=== PATIENT | male | born 1960 | race Caucasian/White ===

== ENCOUNTER 2016-08-31 15:50 | Inpatient (IN) | payer OTHER ==
[2016-08-31 17:00] LABS: Basophils % (A) 1 %; CH 30.9; Eosinophils % (A) 0 %; HCT 38.6 % (39.0-53.0); HGB 13.7 gm/dL (13.0-17.5); Luc # (Auto) 0.05; Luc % (Auto) 2; Lymphocytes # (A) 0.9 k/uL (1.0-4.8); Lymphocytes % (A) 31 %; MCH 30.6 pg (25.0-35.0); MCHC 35.5 g/dL (31.0-37.0); MCV 86.1 fL (80.0-100.0); Monocytes # (A) 0.2 k/uL (0-1.0); Monocytes % (A) 7 %; Neutrophils # (A) 1.7 k/uL (1.3-7.7); Neutrophils % (A) 58 %; RBC 4.49 m/uL (4.30-5.90); RDW 12.6 % (11.5-15.5); WBC 2.9 k/uL (3.8-10.6); WBC (Perox) 2.87
--- NOTE | 2016-08-31 17:08 | ED ---
General Adult HPI - General Chief complaint: Psychiatric Symptoms Stated complaint: depression Time Seen by Provider: 08/31/16 16:00 Source: patient, RN notes reviewed Mode of arrival: ambulatory Limitations: no limitations - History of Present Illness Initial comments: This is a 56-year-old male who presents to the emergency department stating she' s been more and more depressed. Patient states he was in alcohol 35 years quit 6 months ago. Patient states just prior to quitting he had been drinking and got extremely upset took one of his dogs out to the shed and shot it and killed it. He believes this is what set off his of 11 years and she eventually left him about 6 months ago. Patient states since then he has been noticing that he is having difficulty concentrating and doing his job at work. 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 Patient states he spent the last week at home just laying on the couch not doing anything. Patient denies any suicidal homicidal ideations though he states the thought of being is somewhat comforting. Patient denies any physical complaints today. Patient denies headache patient denies numbness weakness. Patient denies any chest pain difficulty breathing shortest breath per patient denies any recent fever chills or cough. Patient denies abdominal pain patient denies nausea vomiting or diarrhea. - Related Data Home Medications Medication Instructions Recorded Confirmed FLUoxetine HCL [PROzac] 40 mg PO DAILY 08/31/16 08/31/16 Levothyroxine Sodium [Synthroid] 75 mcg PO DAILY 08/31/16 08/31/16 Losartan Potassium [Cozaar] 100 mg PO DAILY 08/31/16 08/31/16 amLODIPine [Norvasc] 10 mg PO DAILY 08/31/16 08/31/16 Allergies Allergy/AdvReac Type Severity Reaction Status Date / Time No Known Allergies Allergy Verified 08/31/16 16:51 Review of Systems ROS Statement: Those systems with pertinent positive or pertinent negative responses have been documented in the HPI. ROS Other: All systems not noted in ROS Statement are negative. Past Medical History Past Medical History: Hypertension, Thyroid Disorder History of Any Multi-Drug Resistant Organisms: None Reported Past Surgical History: No Surgical Hx Reported Past Psychological History: Depression Smoking Status: Never smoker Past Alcohol Use History: None Reported Past Drug Use History: None Reported General Exam - General Exam Comments Initial Comments: GENERAL: Patient is well-developed and well-nourished. Patient is nontoxic and well- hydrated and is in no acute distress. ENT: Neck is soft and supple. No significant lymphadenopathy is noted. Oropharynx is clear. Moist mucous membranes. Neck has full range of motion without eliciting any pain. EYES: The sclera were anicteric and conjunctiva were pink and moist. Extraocular movements were intact and pupils were equal round and reactive to light. Eyelids were unremarkable. PULMONARY: Unlabored respirations. Good breath sounds bilaterally. No audible rales rhonchi or wheezing was noted. CARDIOVASCULAR: There is a regular rate and rhythm without any murmurs gallops or rubs. ABDOMEN: Soft and nontender with normal bowel sounds. No palpable organomegaly was noted. There is no palpable pulsatile mass. SKIN: Skin is clear with no lesions or rashes and otherwise unremarkable. NEUROLOGIC: Patient is alert and oriented x3. Cranial nerves II through XII are grossly intact. Motor and sensory are also intact. Normal speech, volume and content. Symmetrical smile. MUSCULOSKELETAL: Normal extremities with adequate strength and full range of motion. No lower extremity swelling or edema. No calf tenderness. LYMPHATICS: No significant lymphadenopathy is noted PSYCHIATRIC: Patient has a flat affect patient does seem significantly depressed he does not seem to know where to go or what to do as far as getting back to work because he is unable to get off his couch. Patient states he is in contact with his but only sparingly and he is not sure exactly why she is not back in the picture since he is now stopped drinking for 6 months. Limitations: no limitations Course Vital Signs 08/31/16 08/31/16 15:59 19:04 Temperature 98.3 F Pulse Rate 79 57 L Respiratory 20 16 Rate Blood Pressure 128/83 127/88 O2 Sat by Pulse 97 99 Oximetry Medical Decision Making - Lab Data Result diagrams: 08/31/16 16:45 08/31/16 16:45 Lab Results 08/31/16 08/31/16 08/31/16 Range/Units 16:45 16:45 17:00 WBC 2.9 L (3.8-10.6) k/uL RBC 4.49 (4.30-5.90) m/uL Hgb 13.7 (13.0-17.5) gm/dL Hct 38.6 L (39.0-53.0) % MCV 86.1 (80.0-100.0) fL MCH 30.6 (25.0-35.0) pg MCHC 35.5 (31.0-37.0) g/dL RDW 12.6 (11.5-15.5) % Plt Count 168 (150-450) k/uL Neutrophils % 58 % Lymphocytes % 31 % Monocytes % 7 % Eosinophils % 0 % Basophils % 1 % Neutrophils # 1.7 (1.3-7.7) k/uL Lymphocytes # 0.9 L (1.0-4.8) k/uL Monocytes # 0.2 (0-1.0) k/uL Eosinophils # 0.0 (0-0.7) k/uL Basophils # 0.0 (0-0.2) k/uL Sodium 142 (137-145) mmol/L Potassium 3.7 (3.5-5.1) mmol/L Chloride 104 (98-107) mmol/L Carbon Dioxide 29 (22-30) mmol/L Anion Gap 9 mmol/L BUN 11 (9-20) mg/dL Creatinine 0.87 (0.66-1.25) mg/dL Est GFR (MDRD) Af Amer >60 (>60 ml/min/1.73 sqM) Est GFR (MDRD) Non-Af >60 (>60 ml/min/1.73 sqM) Glucose 85 (74-99) mg/dL Calcium 9.3 (8.4-10.2) mg/dL Magnesium 2.4 H (1.6-2.3) mg/dL Total Bilirubin 0.8 (0.2-1.3) mg/dL AST 30 (17-59) U/L ALT 43 (21-72) U/L Alkaline Phosphatase 48 (38-126) U/L Total Protein 7.0 (6.3-8.2) g/dL Albumin 4.2 (3.5-5.0) g/dL Urine Opiates Screen Not Detected (NotDetected) Ur Oxycodone Screen Not Detected (NotDetected) Urine Methadone Screen Not Detected (NotDetected) Ur Propoxyphene Screen Not Detected (NotDetected) Ur Barbiturates Screen Not Detected (NotDetected) U Tricyclic Antidepress Not Detected (NotDetected) Ur Phencyclidine Scrn Not Detected (NotDetected) Ur Amphetamines Screen Not Detected (NotDetected) U Methamphetamines Scrn Not Detected (NotDetected) U Benzodiazepines Scrn Detected H (NotDetected) Urine Cocaine Screen Not Detected (NotDetected) U Marijuana (THC) Screen Not Detected (NotDetected) Disposition Clinical Impression: Depression Disposition: ADMITTED IP TO THIS HOSP Time of Disposition: 21:12
[2016-08-31 17:13] LABS: ALT 43 U/L (21-72); AST 30 U/L (17-59); Alkaline Phosphatase 48 U/L (38-126); Anion Gap 9 mmol/L; Blood Urea Nitrogen 11 mg/dL (9-20); Calcium 9.3 mg/dL (8.4-10.2); Carbon Dioxide 29 mmol/L (22-30); Chloride 104 mmol/L (98-107); Glucose 85 mg/dL (74-99); Magnesium 2.4 mg/dL (1.6-2.3); Non-African American GFR(MDRD) >60 (>60 ml/min/1.73 sqM); Potassium 3.7 mmol/L (3.5-5.1); Sodium 142 mmol/L (137-145); Total Bilirubin 0.8 mg/dL (0.2-1.3)
--- NOTE | 2016-08-31 19:35 | CT ---
EXAMINATION TYPE: CT brain wo con DATE OF EXAM: 08/31/2016 7:20 PM COMPARISON: NONE HISTORY: Depression. CT DLP: 1121.00 mGycm Automated exposure control for dose reduction was used. FINDINGS: Ventricles have normal size. There is no mass effect nor midline shift. There is no sign of intracran ial hemorrhage. The calvarium is intact. IMPRESSION: Negative unenhanced head CT scan.
[2016-09-01] MEDS ORDERED: MAGNESIUM HYDROXIDE 2,400 MG/10 ML CUP PO PRN (04:26)
[2016-09-01] MEDS ORDERED: ZIPRASIDONE 20 MG VIAL IM PRN (04:26)
[2016-09-01] MEDS ORDERED: MAG HYDROX/AL HYDROX/SIMETH 30 ML CUP PO PRN (04:26)
[2016-09-01] MEDS ORDERED: ACETAMINOPHEN TAB 325 MG TAB PO PRN (04:26)
[2016-09-01] MEDS ORDERED: LORazepam 1 MG TAB PO PRN (04:26)
[2016-09-01] MEDS ORDERED: FLUoxetine HCL 20 MG CAP PO SCH (09:00)
[2016-09-01] MEDS: LEVOTHYROXINE 75 MCG TAB PO SCH (09:44)
[2016-09-01] MEDS: LOSARTAN 50 MG TAB PO SCH (09:44)
[2016-09-01] MEDS: amLODIPine 10 MG TAB PO SCH (09:44)
[2016-09-01] MEDS: NICOTINE 14MG/24HR PATCH TRANSDERM SCH (09:45)
--- NOTE | 2016-09-01 16:47 | P.HP ---
Psychiatric H&P - . H&P Date: 09/01/16 History & Physical: Allergies Allergy/AdvReac Type Severity Reaction Status Date / Time No Known Allergies Allergy Verified 09/01/16 07:25 Vital Signs Temp 98.0 F 09/01/16 06:59 Pulse 95 09/01/16 09:47 Resp 18 09/01/16 09:47 BP 125/80 09/01/16 09:47 Pulse Ox 97 08/31/16 21:43 Laboratory Last Values WBC 2.9 k/uL (3.8-10.6) L 08/31/16 16:45 RBC 4.49 m/uL (4.30-5.90) 08/31/16 16:45 Hgb 13.7 gm/dL (13.0-17.5) 08/31/16 16:45 Hct 38.6 % (39.0-53.0) L 08/31/16 16:45 MCV 86.1 fL (80.0-100.0) 08/31/16 16:45 MCH 30.6 pg (25.0-35.0) 08/31/16 16:45 MCHC 35.5 g/dL (31.0-37.0) 08/31/16 16:45 RDW 12.6 % (11.5-15.5) 08/31/16 16:45 Plt Count 168 k/uL (150-450) 08/31/16 16:45 Neutrophils % 58 % 08/31/16 16:45 Lymphocytes % 31 % 08/31/16 16:45 Monocytes % 7 % 08/31/16 16:45 Eosinophils % 0 % 08/31/16 16:45 Basophils % 1 % 08/31/16 16:45 Neutrophils # 1.7 k/uL (1.3-7.7) 08/31/16 16:45 Lymphocytes # 0.9 k/uL (1.0-4.8) L 08/31/16 16:45 Monocytes # 0.2 k/uL (0-1.0) 08/31/16 16:45 Eosinophils # 0.0 k/uL (0-0.7) 08/31/16 16:45 Basophils # 0.0 k/uL (0-0.2) 08/31/16 16:45 Sodium 142 mmol/L (137-145) 08/31/16 16:45 Potassium 3.7 mmol/L (3.5-5.1) 08/31/16 16:45 Chloride 104 mmol/L (98-107) 08/31/16 16:45 Carbon Dioxide 29 mmol/L (22-30) 08/31/16 16:45 Anion Gap 9 mmol/L 08/31/16 16:45 BUN 11 mg/dL (9-20) 08/31/16 16:45 Creatinine 0.87 mg/dL (0.66-1.25) 08/31/16 16:45 Est GFR (MDRD) Af Amer >60 (>60 ml/min/1.73 sqM) 08/31/16 16:45 Est GFR (MDRD) Non-Af >60 (>60 ml/min/1.73 sqM) 08/31/16 16:45 Glucose 85 mg/dL (74-99) 08/31/16 16:45 Calcium 9.3 mg/dL (8.4-10.2) 08/31/16 16:45 Magnesium 2.4 mg/dL (1.6-2.3) H 08/31/16 16:45 Total Bilirubin 0.8 mg/dL (0.2-1.3) 08/31/16 16:45 AST 30 U/L (17-59) 08/31/16 16:45 ALT 43 U/L (21-72) 08/31/16 16:45 Alkaline Phosphatase 48 U/L (38-126) 08/31/16 16:45 Total Protein 7.0 g/dL (6.3-8.2) 08/31/16 16:45 Albumin 4.2 g/dL (3.5-5.0) 08/31/16 16:45 Urine Opiates Screen Not Detected (NotDetected) 08/31/16 17:00 Ur Oxycodone Screen Not Detected (NotDetected) 08/31/16 17:00 Urine Methadone Screen Not Detected (NotDetected) 08/31/16 17:00 Ur Propoxyphene Screen Not Detected (NotDetected) 08/31/16 17:00 Ur Barbiturates Screen Not Detected (NotDetected) 08/31/16 17:00 U Tricyclic Antidepress Not Detected (NotDetected) 08/31/16 17:00 Ur Phencyclidine Scrn Not Detected (NotDetected) 08/31/16 17:00 Ur Amphetamines Screen Not Detected (NotDetected) 08/31/16 17:00 U Methamphetamines Scrn Not Detected (NotDetected) 08/31/16 17:00 U Benzodiazepines Scrn Detected (NotDetected) H 08/31/16 17:00 Urine Cocaine Screen Not Detected (NotDetected) 08/31/16 17:00 U Marijuana (THC) Screen Not Detected (NotDetected) 08/31/16 17:00 09/01/16 16:39 IDENTIFYING DATA: 56-year-old male patient HPI: Patient admitted to the inpatient psychiatric unit at [facility] on a voluntary basis. Patient describes that he had depression in the last 2 weeks she's been more anxious and afraid to leave the house. He states the last 2 years as been a lot of not great things with his drinking so his and he are not together and when they went her separate ways he was left with dealing with things such as the animals. Says he has not been going to work recently. He denies actual thoughts of suicide recently but the last time he felt this bad was when he decided he had to stop drinking. He admits to being a worrier. He describes an incident a year ago where they were accumulating dogs, they went from 5 to 12 dogs and he had the idea at that time to stop taking Prozac. He states he had two really high strung dogs that were barking all the time and he shot and killed one of the dogs and things changed for his him from that time on. PAST PSYCHIATRIC HISTORY: He has never had any psychiatric admissions. He denies any history of suicide times. He does not see a current counselor. He' s been on 40 mg of Prozac for years. That always seemed to do well for him and he realizes that it does help when he goes without it. PMH: Denies ALLERGIES: No Known ALLERGIES MEDICATIONS: Tylenol when necessary, Maalox when necessary, Norvasc, Prozac, Synthroid, Ativan when necessary, Cozaar, milk of magnesia when necessary, Habitrol, Geodon when necessary CHEMICAL DEPENDENCY HISTORY: Says he has been sober for 6-1/2 months now. He makes reference to doing AA. Says his whole adult life he was a daily drinker, he did try doing some counseling in [place] and going to AA. Has never been to rehab. FAMILY PSYCHIATRIC HISTORY: Not that he is aware of FAMILY CHEMICAL DEPENDENCY HISTORY: Not known SOCIAL HISTORY: Reports that he currently has 7 dogs and 5 cats. He has been 3-1/2 years. They were together 11 years. He relates that she moved out last fall. He does not currently have any guns. He states his last understanding is that their relationship is done. He is currently living on his own. He does not have any children. He works as a project architect doing acoustic tests. MENTAL STATUS EXAM: He is alert and cooperative. Speech is fluent, not rapid or pressured. His thought processes are organized. His mood is described as "still trying to take everything in." "Better than I thought." He denies any current thoughts of harm to self or others. He denies any auditory or visual hallucinations. He does not make any ant delusional statements. Insight is adequate, judgment shows evidence of recent impairment. Cognitively appears to be grossly intact. I do not note any significant disorientation or memory disturbance. STRENGTHS/WEAKNESSES: Strengths-some support system; weaknesses-coping skills INTELLECTUAL FUNCTIONING: Average IMPRESSIONS: Major depressive disorder, recurrent; generalized anxiety disorder ; history of alcohol use disorder PLAN: Patient is admitted to the inpatient psychiatric unit [facility] on a voluntary basis. He will be placed on SP 15 minute precautions. Baseline laboratory workup will be done the patient and medical consultation will be ordered. We'll titrate Prozac to 60 motives daily to help with depression and anxiety. We will look into family supports. We'll continue to cover this patient for Dr. Kapoor through the weekend, Dr. Kapoor will initiate his care on Saturday. Estimated length of stay is 3-5 days. Prognosis is guarded.
--- NOTE | 2016-09-01 18:00 | P.CONS ---
History of Present Illness - Reason for Consult Consult date: 09/01/16 medical H N P - History of Present Illness 56 yr old with h/o of HTn, hypothyroidism is admitted to the hospital with complaints of hopelessness and some remote suicidal thoughts Pt has had long history of alcohol abuse, which has caused stress on his relation ship with his , has been sober for over 6 months at this time States he is frustrated. Apparently has slept the last few days, appetite has decreased Denies recent illnesses No headaches, blurry vision , n/v, chest pain, ABEBA, abdominal pain, focal deficits, urinary urgency or frequency reported. Review of Systems All systems: negative (noted in HPI) Past Medical History Past Medical History: Hypertension, Thyroid Disorder History of Any Multi-Drug Resistant Organisms: None Reported Past Surgical History: No Surgical Hx Reported Past Psychological History: Depression Smoking Status: Never smoker Past Alcohol Use History: None Reported Past Drug Use History: None Reported Medications and Allergies Home Medications Medication Instructions Recorded Confirmed Type FLUoxetine HCL [PROzac] 40 mg PO DAILY 08/31/16 09/01/16 History Levothyroxine Sodium [Synthroid] 75 mcg PO DAILY 08/31/16 09/01/16 History Losartan Potassium [Cozaar] 100 mg PO DAILY 08/31/16 09/01/16 History amLODIPine [Norvasc] 10 mg PO DAILY 08/31/16 09/01/16 History Allergies Allergy/AdvReac Type Severity Reaction Status Date / Time No Known Allergies Allergy Verified 09/01/16 07:25 Physical Exam Vitals: Vital Signs Temp Pulse Pulse Resp BP BP Pulse Ox 09/01/16 09:47 95 18 125/80 09/01/16 06:59 98.0 F 84 16 105/70 09/01/16 06:32 98.5 F 74 16 130/74 08/31/16 21:43 97 F L 87 18 129/71 97 - Constitutional General appearance: no acute distress - EENT Eyes: PERRLA - Neck Neck: normal ROM, no rigidity - Respiratory Respiratory: bilateral: CTA, negative: dullness, rales, rhonchi - Cardiovascular Rhythm: regular Heart sounds: normal: S1, S2 - Gastrointestinal General gastrointestinal: normal bowel sounds, no organomegaly, soft - Integumentary Integumentary: no jaundiced, normal - Neurologic Neurologic: CNII-XII intact - Musculoskeletal Musculoskeletal: gait normal, strength equal bilaterally - Psychiatric Psychiatric: A&O x's 3 (flat affect. ) Results CBC & Chem 7: 08/31/16 16:45 08/31/16 16:45 Assessment and Plan Plan: 1. Major depression 2. h/o of alcohol abuse 3. hypothyroidism 4. HTN Plan Examination is wnl. No further testing is necessary. pt does seem to have significant social issues MEds were reviewed Thank you for the consultation will follow the pt with you intermittently.
[2016-09-02 08:38] LABS: Basophils % (A) 0 %; CH 30.5; CHCM 34.5; Eosinophils % (A) 0 %; HCT 40.7 % (39.0-53.0); HDW 2.65; HGB 14.1 gm/dL (13.0-17.5); Luc # (Auto) 0.09; Luc % (Auto) 3; Lymphocytes # (A) 1.1 k/uL (1.0-4.8); Lymphocytes % (A) 34 %; MCH 30.8 pg (25.0-35.0); MCHC 34.6 g/dL (31.0-37.0); MCV 88.8 fL (80.0-100.0); Mean Platelet Volume 7.3; Monocytes # (A) 0.2 k/uL (0-1.0); Monocytes % (A) 6 %; Neutrophils # (A) 1.8 k/uL (1.3-7.7); Neutrophils % (A) 56 %; RBC 4.58 m/uL (4.30-5.90); RDW 12.7 % (11.5-15.5); WBC 3.2 k/uL (3.8-10.6)
[2016-09-02 08:51] LABS: ALT 37 U/L (21-72); AST 26 U/L (17-59); Alkaline Phosphatase 38 U/L (38-126); Anion Gap 9 mmol/L; Blood Urea Nitrogen 12 mg/dL (9-20); Calcium 9.3 mg/dL (8.4-10.2); Carbon Dioxide 28 mmol/L (22-30); Chloride 106 mmol/L (98-107); Glucose 99 mg/dL (74-99); Non-African American GFR(MDRD) >60 (>60 ml/min/1.73 sqM); Potassium 4.3 mmol/L (3.5-5.1); Sodium 143 mmol/L (137-145)
[2016-09-02] MEDS: LOSARTAN 50 MG TAB PO SCH (09:30)
[2016-09-02] MEDS: LEVOTHYROXINE 75 MCG TAB PO SCH (09:30)
[2016-09-02] MEDS: FLUoxetine HCL 20 MG CAP PO SCH (09:30)
[2016-09-02] MEDS: NICOTINE 14MG/24HR PATCH TRANSDERM SCH (09:31)
[2016-09-02] MEDS: amLODIPine 10 MG TAB PO SCH (09:31)
--- NOTE | 2016-09-02 16:33 | P.PN ---
Progress Note - Text Interval history: Patient seen again in cross coverage today for Dr. Kapoor. He reports that he slept better last night perhaps about 6 hours. He does relate that he is eating well. He seems to be tolerating the increased dose of Prozac well. He is attending groups. MEntal status exam: He is alert and cooperative with the interview. His speech is fluent, not rapid or pressured. Thought processes organized. His affect overall is restricted. His mood he described as all right. He does not verbalize any thoughts of harm to self or others. No evidence of psychosis or agitation. Plan: Patient will be maintained on current dose of Prozac which has been titrated. Dr. Kapoor will be initiating care this patient starting tomorrow. Continue to monitor his mood. Look into potential family meeting with his parents.
[2016-09-03] MEDS: amLODIPine 10 MG TAB PO SCH (08:31)
[2016-09-03] MEDS: FLUoxetine HCL 20 MG CAP PO SCH (08:31)
[2016-09-03] MEDS: LEVOTHYROXINE 75 MCG TAB PO SCH (08:32)
[2016-09-03] MEDS: LOSARTAN 50 MG TAB PO SCH (08:32)
--- NOTE | 2016-09-03 15:21 | P.PN ---
Progress Note - Text SUBJECTIVE: I reviewed the medical record, interviewed Mr. Soares and discuss his treatment and treatment plan during team meeting. He has history of an alcohol use disorder and depression. He stated that he stopped using alcohol without professional intervention about 6 months ago concerned about the effect of his alcohol use on his marriage. However, he and his have since and he believes they will not reconcile. His depression has affected his performance at work where he last went to work on Saturday prior to admission. We talked about the issues regarding his marriage and the relationship between his depression, marital difficulties, separation and possible divorce. He completed the Cottrell Depression Inventory. His total score was 32 consistent with severe symptoms of depression. He rated the following items as severe: Tiredness or fatigue, loss of energy and loss of interest in sex. He rated the following items as moderate: Past failure, guilty feelings, self dislike, indecisiveness, changes in sleeping pattern (I sleep a lot more than usual), and concentration difficulties. He has been prescribed fluoxetine by his primary care provider for at least 10 years. OBJECTIVE: He presented as a casually groomed 56-year-old male with several days growth of cm. He made eye contact and appeared to attend to the interview. He had no distinguishing features or prominent physical abnormalities. He had a sad facial expression. He was alert and oriented to person, place and time. He showed psychomotor retardation but no abnormal involuntary movements. He had a slow but steady gait. His speech was spontaneous with normal rate, rhythm and volume. He had no articulation difficulties. His affect was depressed and not reactive. He denied suicidal ideation or wishes. He denied homicidal ideation. He expressed depressive cognitions such as hopelessness, helplessness and worthlessness. He did not express obsessions, phobias, ideas reference, paranoid ideation or delusional thinking. His thinking was abstract and his associations were coherent and logical. ASSESSMENT: He has remains depressed but denies suicidal ideation, intent or plan. There is no evidence of psychosis. He denied a history suggestive of a near hypomania. PLAN: Continue inpatient hospitalization due to the severity of depression. Cross titrate fluoxetine to Effexor XR. Social work range outpatient individual therapy and psychiatric care. Encourage participation in therapeutic groups and activities. Evaluate clinical status response to treatment on a daily basis.
[2016-09-04] MEDS: VENLAFAXINE HCL ER 75 MG CAP PO SCH (09:22)
[2016-09-04] MEDS: LEVOTHYROXINE 75 MCG TAB PO SCH (09:22)
[2016-09-04] MEDS: FLUoxetine HCL 20 MG CAP PO SCH (09:23)
[2016-09-04] MEDS: amLODIPine 10 MG TAB PO SCH (09:53)
[2016-09-04] MEDS: LOSARTAN 50 MG TAB PO SCH (09:54)
--- NOTE | 2016-09-04 13:24 | P.PN ---
Progress Note - Text SUBJECTIVE: I reviewed the medical record, interviewed Mr. Soares and discuss his treatment and treatment plan during team meeting. He is "feeling better" today. He denied thoughts of or suicide. He talked about his struggles with alcohol and his support for his recovery to Alcoholics Anonymous. He feels constipated that he may be able to remain sober with participation in Alcoholics Anonymous. 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 The burden has increased since his he and his and a burden for the caring coffee 7 dogs and 5 cats were entirely his responsibility. OBJECTIVE: He presented as a casually groomed 56-year-old male with several days growth of cm. He made eye contact and appeared to attend to the interview. He had no distinguishing features or prominent physical abnormalities. He had a blunted but bright facial expression. He was alert and oriented to person, place and time. He showed slight psychomotor retardation but no abnormal involuntary movements. He had a slow but steady gait. His speech was spontaneous with normal rate, rhythm and volume. He had no articulation difficulties. His affect was depressed and not reactive. He denied suicidal ideation or wishes. He denied homicidal ideation. He expressed depressive cognitions such as hopelessness, helplessness and worthlessness. He did not express obsessions, phobias, ideas reference, paranoid ideation or delusional thinking. His thinking was abstract and his associations were coherent and logical. ASSESSMENT: He appears less depressed. Overall he appears moderately mentally health and moderately improved from admission. PLAN: Continue inpatient hospitalization due to the severity of depression. Cross titrate fluoxetine to Effexor XR (current doses: Prozac 40 mg daily and Effexor XR 75 mg daily). Social work range outpatient individual therapy and psychiatric care. Encourage participation in therapeutic groups and activities. Evaluate clinical status response to treatment on a daily basis
[2016-09-05 06:10] VITALS: TEMP 98.1
[2016-09-05] MEDS: amLODIPine 10 MG TAB PO SCH (08:45)
[2016-09-05] MEDS: LOSARTAN 50 MG TAB PO SCH (08:45)
[2016-09-05] MEDS: VENLAFAXINE HCL ER 75 MG CAP PO SCH (08:46)
[2016-09-05] MEDS: FLUoxetine HCL 20 MG CAP PO SCH (08:46)
[2016-09-05] MEDS: LEVOTHYROXINE 75 MCG TAB PO SCH (08:46)
[2016-09-05 08:47] VITALS: BP 92/66; PULSE 107; RESP 18
--- NOTE | 2016-09-05 09:41 | P.PN ---
Progress Note - Text SUBJECTIVE: I reviewed the medical record, interviewed Mr. Soares and discuss his treatment and treatment plan during team meeting. He denied feeling depressed or having thoughts of or suicide. He is anxious to leave and resume his life. He is unable to explain how became so distraught to the point where he is unable to work. He wishes to resume outpatient treatment through the [facility] outpatient clinic. OBJECTIVE: He presented as a casually groomed 56-year-old male with several days growth of cm. He made eye contact and appeared to attend to the interview. He had no distinguishing features or prominent physical abnormalities. He had a bright facial expression. He was alert and oriented to person, place and time. He showed slight psychomotor retardation but no abnormal involuntary movements. He had a slow but steady gait. His speech was spontaneous with normal rate, rhythm and volume. He had no articulation difficulties. His affect was blunted but bright. He denied suicidal ideation or wishes. He denied homicidal ideation. He denied feeling hopelessness , helplessness and worthlessness. He did not express obsessions, phobias, ideas reference, paranoid ideation or delusional thinking. His thinking was abstract and his associations were coherent and logical. ASSESSMENT: Overall he appears minimally mentally health and not improved from admission. PLAN: Discharge home with follow-up through [facility] outpatient clinic. Complete the cross titration of fluoxetine to Effexor XR as an outpatient. Social work range outpatient individual therapy and psychiatric care.
--- NOTE | 2016-09-05 09:54 | P.DS ---
Providers Date of admission: 08/31/16 21:37 Attending physician: Abimael Kapoor MD Consults: 09/01/16 16:09 Consult Physician Routine Consulting Provider: Toño Leavitt Consult Reason/Comments: H&P Do you want consulting provider notified?: Already Contacted 09/04/16 10:07 Consult Physician Routine Consulting Provider: Toño Leavitt Consult Reason/Comments: low blood pressure and b/p medications Do you want consulting provider notified?: Yes Primary care physician: Dasha Ritchie - Jeremy Diagnosis(es) (1) Major depressive disorder in partial remission Current Visit: Yes Status: Chronic Priority: Medium (2) Alcohol use disorder, severe, in early remission Current Visit: Yes Status: Chronic Priority: Medium Hospital Course: Mr. Soares is a 56-year-old male who presented to the psychiatric unit voluntarily with complaints of depression and suicidal ideation. He has no history of an alcohol use disorder. He stopped using alcohol without professional intervention about 6 months ago concerned about the effectiveness alcohol and his marriage. However, he and his has since and he believes they will not reconcile. The depression worsened after the separation. His depression is affecting his performance at work. He attends Alcoholics Anonymous 3 days a week and has a home group. Please see Dr. Soriano's admission history dated 09/01/2016. We admitted him to the psychiatric unit under the care of this proposal manager writer. Provided a biopsychosocial assessment. The jury consultant belly packer completed the initial physical exam and medical history. The belly packer diagnosed history of alcohol abuse, hypothyroidism and hypertension. We continued the following outpatient medications: Synthroid 75 mg daily, Cozaar 100 mg daily and Norvasc 10 mg daily. We placed him onsuicide precautions with 15 minute checks. He participated in therapeutic groups and activities. He posed no management problem and had no episodes of behavioral dyscontrol. He did not demonstrate suicidal or para-suicidal behaviors. His primary care provider has been prescribing Prozac for the treatment of depression and anxiety for over 10 years. We discussed treatment options and he consented to a trial of Effexor XR. We cross titrated Effexor and Prozac. At the time of discharge we prescribed Effexor XR 150 mg daily and Prozac 20 mg daily. The discharge instructions included continuing the Prozac 20 mg daily for 2 days and then discontinue. At the time of discharge he denied feeling depressed or having thoughts of or suicide. He denied feeling hopeless, helpless or worthless. He has appointments scheduled for continued mental health treatment through the [facility] outpatient clinic. Patient Condition at Discharge: Stable Plan - Discharge Summary New Discharge Prescriptions: FLUoxetine HCL [PROzac] 20 mg PO DAILY #2 cap Venlafaxine HCl ER [Effexor Xr] 150 mg PO DAILY 30 Days Discharge Medication List Levothyroxine Sodium [Synthroid] 75 mcg PO DAILY 08/31/16 [History] Losartan Potassium [Cozaar] 100 mg PO DAILY 08/31/16 [History] amLODIPine [Norvasc] 10 mg PO DAILY 08/31/16 [History] FLUoxetine HCL [PROzac] 20 mg PO DAILY #2 cap 09/05/16 [Rx] Venlafaxine HCl ER [Effexor Xr] 150 mg PO DAILY 30 Days 09/05/16 [Rx] Follow up Appointment(s)/Referral(s): [facility] [Outside] - 09/12/16 11:00 am (w/ Andry Huntley. Patient to arrive at 10:45am for paperwork) Dasha Ritchie DO [Primary Care Provider] - 1-2 days Discharge Disposition: HOME SELF-CARE
[2016-09-06] MEDS ORDERED: VENLAFAXINE HCL ER 150 MG CAP PO SCH (09:00)
[2016-09-06] MEDS ORDERED: FLUoxetine HCL 20 MG CAP PO SCH (09:00)
== END 2016-09-05 13:28 | disposition home or self-care (01) | DRG 885 ==
LOC: EC 15:50 → 3MHU 21:37
PROVIDERS: ADMIT Psychiatry & Neurology Psychiatry; ATTEND Psychiatry & Neurology Psychiatry
DX: F33.9 Major depressive disorder, recurrent, unspecified (principal); R45.851 Suicidal ideations; I10 Essential (primary) hypertension; E03.9 Hypothyroidism, unspecified; F10.21 Alcohol dependence, in remission; F41.1 Generalized anxiety disorder; Z79.899 Other long term (current) drug therapy
CPT/HCPCS: 36415; 70450; 80053; 80306; 82075; 83735; 84443; 85025; 99285

== ENCOUNTER 2020-08-19 09:09 | Day surgery (SDC) | payer OTHER ==
[2020-08-17 10:24] VITALS: BMI 26.5
[2020-08-19] MEDS: LACTATED RINGERS 1,000 ML IV SCH ×2 (09:44→09:59)
[2020-08-19] MEDS ORDERED: LIDOCAINE 1% (10MG/ML) FOR IV START INTRADERMA ONE (09:58)
[2020-08-19 10:01] VITALS: TEMP 98
[2020-08-19] MEDS ORDERED: PROPOFOL 10 MG/ML 20 ML VIAL IV ONE (10:52)
--- NOTE | 2020-08-19 10:54 | P.GSHP ---
History of Present Illness H&P Date: 08/19/20 Chief Complaint: Screening colonoscopy Is a 60-year-old male who presents today for screening colonoscopy. Patient denies a significant GI complaints. Past Medical History Past Medical History: Hypertension, Thyroid Disorder History of Any Multi-Drug Resistant Organisms: None Reported Past Surgical History: No Surgical Hx Reported Past Anesthesia/Blood Transfusion Reactions: No Reported Reaction Smoking Status: Never smoker - Past Family History Mother Family Medical History: No Reported History Medications and Allergies Home Medications Medication Instructions Recorded Confirmed Type Levothyroxine Sodium [Synthroid] 75 mcg PO DAILY 08/31/16 08/19/20 History Losartan Potassium [Cozaar] 100 mg PO DAILY 08/31/16 08/19/20 History amLODIPine [Norvasc] 10 mg PO DAILY 08/31/16 08/19/20 History Venlafaxine HCl [Effexor XR] 225 mg PO DAILY 08/17/20 08/19/20 History Allergies Allergy/AdvReac Type Severity Reaction Status Date / Time No Known Allergies Allergy Verified 08/19/20 09:45 Surgical - Exam Vital Signs Temp Pulse Resp BP Pulse Ox 98.0 F 101 H 16 146/99 94 L 08/19/20 09:50 08/19/20 09:50 08/19/20 09:50 08/19/20 09:50 08/19/20 09:50 - General well developed, well nourished, no distress - Eyes PERRL - ENT normal pinna - Neck no masses - Respiratory normal expansion - Cardiovascular Rhythm: regular - Abdomen Abdomen: soft, non tender Assessment and Plan Assessment: We'll perform screening colonoscopy
--- NOTE | 2020-08-19 11:15 | P.OP ---
Date of Procedure: 08/19/20 Preoperative Diagnosis: Screening colonoscopy Postoperative Diagnosis: Normal colonoscopy Anesthesia: MAC Surgeon: Kaveh Falk Pathology: none sent Condition: stable Disposition: PACU Description of Procedure: PROCEDURE: The patient was placed on the endoscopy table in the lateral position. Digital rectal examination was performed which revealed no abnormalities. The prostate was symmetrical without nodules. Flexible colonoscope was then placed in the patient's anus and passed throughout the entire colon. The ileocecal valve was visualized. The cecum, ascending, transverse, descending and sigmoid colon were normal. The rectum was normal as well. There were no masses, polyps or diverticula noted in the entire colon. SUMMARY OF FINDINGS: Normal colonoscopy.
[2020-08-19 11:43] VITALS: BP 132/78; PULSE 80; RESP 20
== END 2020-08-19 11:47 | disposition home or self-care (01) ==
LOC: ORWHC2ENDO 09:09
PROVIDERS: ATTEND Surgery
DX: Z12.11 Encounter for screening for malignant neoplasm of colon (principal); I10 Essential (primary) hypertension; E03.9 Hypothyroidism, unspecified; Z79.890 Hormone replacement therapy; Z79.899 Other long term (current) drug therapy
CPT/HCPCS: 45378; J2704